=== PATIENT | male | born 1970 | race Caucasian/White ===

== ENCOUNTER 2018-11-10 21:36 | Emergency (ER) | payer BC, OTHER ==
[2018-11-10] MEDS ORDERED: KETOROLAC 30 MG/ML INJ ONE (22:47)
[2018-11-10] MEDS ORDERED: CLINDAMYCIN 600MG/D5W 600 MG/50 ML BAG IV ONE (22:47)
[2018-11-10 22:55] LABS: Absolute Lymphocytes (CBC) 2.1 K/uL (0.7-4.9); Basophils % 0.2 % (0-1.3); Hematocrit 38.2 % (39.6-49.0); Lymphocytes % 18.7 % (15.3-44.8); MPV 8.8 fL (7.6-11.3); Monocytes % 5.1 % (3.3-12.3); RBC Red Blood Cell Count 4.25 M/uL (4.33-5.43)
--- NOTE | 2018-11-11 00:51 | ER ---
Nurse's Notes [facility] Name: Jose M Mota Age: 48 yrs Sex: Male : 1970 Arrival Date: 11/10/2018 Time: 21:44 Bed 13 Private MD: Diagnosis: Cellulitis of left upper limb Presentation: 11/10 21:50 Presenting complaint: Patient states: I got hit by a catfish fin in my left wrist, it la1 went in on the pinky side of my wrist. Redness noted, pt reports pain and decreased sensation to 4th and 5th digit. Transition of care: patient was not received from another setting of care. Onset of symptoms was November 10, 2018. Risk Assessment: Do you want to hurt yourself or someone else? Patient reports no desire to harm self or others. Initial Sepsis Screen: Does the patient meet any 2 criteria? No. Patient's initial sepsis screen is negative. Does the patient have a suspected source of infection? No. Patient's initial sepsis screen is negative. Care prior to arrival: None. 21:50 Method Of Arrival: Ambulatory la1 21:50 Acuity: FIDEL 3 la1 Historical: - Allergies: 21:53 Vicodin; la1 - PMHx: 21:53 Hyperlipidemia; la1 - Immunization history:: Adult Immunizations up to date. - Social history:: Smoking status: Patient/guardian denies using tobacco. - Ebola Screening: : No symptoms or risks identified at this time. Screenin:54 Abuse screen: Denies threats or abuse. Nutritional screening: No deficits noted. la1 Tuberculosis screening: No symptoms or risk factors identified. Fall Risk None identified. Assessment: 21:53 General: Appears in no apparent distress. Behavior is calm, cooperative. Pain: la1 Complains of pain in left wrist. Neuro: Level of Consciousness is awake, alert, obeys commands, Oriented to person, place, time, situation. Cardiovascular: Capillary refill < 3 seconds is brisk in bilateral fingers Patient's skin is warm and dry. Respiratory: Airway is patent Respiratory effort is even, unlabored, Respiratory pattern is regular, symmetrical. GI: No signs and/or symptoms were reported involving the gastrointestinal system. : No signs and/or symptoms were reported regarding the genitourinary system. Musculoskeletal: redness and swelling to ulnar side of left wrist. 23:10 Reassessment: Patient appears in no apparent distress at this time. Patient and/or family updated on plan of care and expected duration. Pain level reassessed. Patient is alert, oriented x 3, equal unlabored respirations, skin warm/dry/pink. Patient states feeling better. Patient states symptoms have improved. 23:22 Reassessment: Patient appears in no apparent distress at this time. No changes from la1 previously documented assessment. Patient and/or family updated on plan of care and expected duration. Pain level reassessed. Patient is alert, oriented x 3, equal unlabored respirations, skin warm/dry/pink. Vital Signs: 21:52 BP 136 / 80; Pulse 96; Resp 16; Temp 98.7; Pulse Ox 98% on R/A; Weight 104.33 kg; la1 Height 5 ft. 8 in. (172.72 cm); 23:10 BP 119 / 74; Pulse 68; Resp 14; Pulse Ox 99% on R/A; ch 11/11 00:13 BP 122 / 78; Pulse 64; Resp 19; Pulse Ox 98% on R/A; la1 11/10 21:52 Body Mass Index 34.97 (104.33 kg, 172.72 cm) la1 ED Course: 11/10 21:44 Patient arrived in ED. am2 21:49 Hollis Gardiner MD is Attending Physician. tw4 21:50 James Alaniz, RN is Primary Nurse. la1 21:52 Triage completed. la1 21:52 Arm band placed on right wrist. la1 21:54 Call light in reach. Side rails up X 1. la1 22:33 Initial lab(s) drawn, by me, sent to lab. Inserted saline lock: 20 gauge in right jp3 forearm, using aseptic technique. Blood collected. 22:38 Pillow given. Verbal reassurance given. Pulse ox on. NIBP on. jp3 22:38 CBC with Diff Sent. jp3 23:09 Wrist Left (3 View) XRAY In Process Unspecified. EDMS 11/11 00:44 No provider procedures requiring assistance completed. IV discontinued, intact, la1 bleeding controlled, No redness/swelling at site. Pressure dressing applied. Administered Medications: 11/10 22:38 Drug: TORadol 30 mg Route: IVP; Site: right antecubital; la1 23:10 Follow up: Response: No adverse reaction; Pain is decreased 22:39 Drug: Clindamycin 600 mg Route: IVPB; Infused Over: 30 mins; Site: right antecubital; la1 23:10 Follow up: IV Status: Completed infusion; IV Intake: 50ml ch Intake: 23:10 IV: 50ml; Total: 50ml. Outcome: 11/11 00:38 Discharge ordered by . [place] 00:44 Discharged to home ambulatory. la1 00:44 Condition: stable 00:44 Discharge instructions given to patient, Instructed on discharge instructions, follow up and referral plans. medication usage, Demonstrated understanding of instructions, follow-up care, medications, Prescriptions given X 2. 00:44 Patient left the ED. la1 Signatures: Dispatcher [employer] EDMS Charline Nguyễn, RN RN James Alaniz RN RN la1 Becca Bates Terrence, MD MD tw4 Merlin Scott jp3
--- NOTE | 2018-11-11 00:52 | EDPHYS ---
Physician Documentation [facility] Name: Jose M Mota Age: 48 yrs Sex: Male : 1970 Arrival Date: 11/10/2018 Time: 21:44 Bed 13 Private MD: ED Physician Hollis Gardiner HPI: 11/11 00:31 This 48 yrs old Male presents to ER via Ambulatory with complaints of Wrist tw4 Injury - By Fish. 00:31 The patient presents with cellulitis of the left wrist. Description: erythematous, tw4 swollen. Onset: The symptoms/episode began/occurred today. Possible cause(s): vandana from fish. Associated signs and symptoms: The patient has no apparent associated signs or symptoms. Modifying factors: the symptoms are alleviated by remaining still, the symptoms are aggravated by movement, pressure. The patient has not experienced similar symptoms in the past. Historical: - Allergies: 11/10 21:53 Vicodin; la1 - PMHx: 21:53 Hyperlipidemia; la1 - Immunization history:: Adult Immunizations up to date. - Social history:: Smoking status: Patient/guardian denies using tobacco. - Ebola Screening: : No symptoms or risks identified at this time. ROS: 11/11 00:31 Constitutional: Negative for fever, chills, and weight loss, Cardiovascular: Negative tw4 for chest pain, palpitations, and edema, Respiratory: Negative for shortness of breath, cough, wheezing, and pleuritic chest pain, Abdomen/GI: Negative for abdominal pain, nausea, vomiting, diarrhea, and constipation, Back: Negative for injury and pain, : Negative for injury, bleeding, discharge, and swelling. Neuro: Negative for headache, weakness, numbness, tingling, and seizure. Skin: Positive for erythema, swelling, Negative for abrasions, abscesses, avulsion, lesions, puncture, rash. Exam: 00:31 Constitutional: This is a well developed, well nourished patient who is awake, alert, tw4 and in no acute distress. Head/Face: Normocephalic, atraumatic. Chest/axilla: Normal chest wall appearance and motion. Nontender with no deformity. No lesions are appreciated. Cardiovascular: Regular rate and rhythm with a normal S1 and S2. No gallops, murmurs, or rubs. Normal PMI, no JVD. No pulse deficits. Respiratory: Lungs have equal breath sounds bilaterally, clear to auscultation and percussion. No rales, rhonchi or wheezes noted. No increased work of breathing, no retractions or nasal flaring. Abdomen/GI: Soft, non-tender, with normal bowel sounds. No distension or tympany. No guarding or rebound. No evidence of tenderness throughout. Back: No spinal tenderness. No costovertebral tenderness. Full range of motion. 00:31 MS/ Extremity: Pulses equal, no cyanosis. Neurovascular intact. Full, normal range of motion. Neuro: Awake and alert, GCS 15, oriented to person, place, time, and situation. Cranial nerves II-XII grossly intact. Motor strength 5/5 in all extremities. Sensory grossly intact. Cerebellar exam normal. Normal gait. 00:31 Skin: cellulitis, that is moderate, irregular, on the left wrist. Vital Signs: 11/10 21:52 BP 136 / 80; Pulse 96; Resp 16; Temp 98.7; Pulse Ox 98% on R/A; Weight 104.33 kg; la1 Height 5 ft. 8 in. (172.72 cm); 23:10 BP 119 / 74; Pulse 68; Resp 14; Pulse Ox 99% on R/A; ch 11/11 00:13 BP 122 / 78; Pulse 64; Resp 19; Pulse Ox 98% on R/A; la1 11/10 21:52 Body Mass Index 34.97 (104.33 kg, 172.72 cm) [facility] MDM: 11/10 21:49 Patient medically screened. tw4 11/11 00:31 Differential diagnosis: allergic reaction, cellulitis. Data reviewed: vital signs, tw4 nurses notes. Data interpreted: Pulse oximetry: Interpretation: normal. Counseling: I had a detailed discussion with the patient and/or guardian regarding: the historical points, exam findings, and any diagnostic results supporting the discharge/admit diagnosis, radiology results. Medication response: Toradol markedly relieved the patient's pain. Response to treatment: the patient's symptoms have markedly improved after treatment, and as a result, I will discharge patient, administer antibiotics Cleocin. 11/10 22:24 Order name: CBC with Diff; Complete Time: 23:28 tw4 11/10 23:28 Interpretation: Normal except: WBC 11.5; RBC 4.25; HGB 12.7; HCT 38.2. tw4 11/10 22:24 Order name: Wrist Left (3 View) XRAY tw4 Administered Medications: 11/10 22:38 Drug: TORadol 30 mg Route: IVP; Site: right antecubital; la1 23:10 Follow up: Response: No adverse reaction; Pain is decreased 22:39 Drug: Clindamycin 600 mg Route: IVPB; Infused Over: 30 mins; Site: right antecubital; la1 23:10 Follow up: IV Status: Completed infusion; IV Intake: 50ml ch Disposition: 11/11/18 00:38 Discharged to Home. Impression: Cellulitis of left upper limb. - Condition is Stable. - Discharge Instructions: Cellulitis, Adult. - Prescriptions for Clindamycin HCl 300 mg Oral Capsule - take 1 capsule by ORAL route every 6 hours for 10 days; 40 capsule. Ibuprofen 800 mg Oral Tablet - take 1 tablet by ORAL route every 8 hours As needed take with food; 30 tablet. - Medication Reconciliation Form, Thank You Letter, Antibiotic Education, Prescription Opioid Use form. - Follow up: Private Physician; When: Upon discharge from the Emergency Department; Reason: If symptoms return, Recheck today's complaints, Continuance of care. - Problem is new. - Symptoms have improved. Signatures: Dispatcher [employer] EDMS James Alaniz RN RN la1 Hollis Gardiner MD MD tw4 Charline Nguyễn RN Corrections: (The following items were deleted from the chart) 11/11 00:44 00:38 11/11/2018 00:38 Discharged to Home. Impression: Cellulitis of left upper limb. la1 Condition is Stable. Forms are Medication Reconciliation Form, Thank You Letter, Antibiotic Education, Prescription Opioid Use. Follow up: Private Physician; When: Upon discharge from the Emergency Department; Reason: If symptoms return, Recheck today's complaints, Continuance of care. Problem is new. Symptoms have improved. tw4
--- NOTE | 2018-11-11 12:47 | RAD REPORT ---
EXAM DESCRIPTION: RAD - Wrist Left 3 View - 11/10/2018 11:01 pm CLINICAL HISTORY: PAIN Pain COMPARISON: No comparisons FINDINGS: No fracture or dislocation seen. No foreign body or other soft tissue abnormality. IMPRESSION: Negative examination.
== END 2018-11-11 00:44 | disposition home or self-care (01) ==
LOC: ER 21:36
DX: L03.114 Cellulitis of left upper limb (principal); E78.5 Hyperlipidemia, unspecified
CPT/HCPCS: 36415; 85025; 96365; 96375; 99284